=== PATIENT | female | born 1995 | race Hispanic/Latino ===

== ENCOUNTER 2018-07-19 10:59 | Emergency (ER) | payer OTHER ==
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
[2018-07-19 13:11] VITALS: TEMP 98
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
[2018-07-19 13:18] VITALS: BP 118/79; PULSE 82; RESP 20
[2018-07-19 13:33] VITALS: O2SAT 100
== END 2018-07-19 13:22 | disposition home or self-care (01) ==
LOC: C.ER 10:59
DX: S13.4XXA Sprain of ligaments of cervical spine, initial encounter (principal); V49.49XA Driver injured in collision with other motor vehicles in traffic accident, initial encounter; Y92.410 Unspecified street and highway as the place of occurrence of the external cause